=== PATIENT | male | born 1995 | race Caucasian/White ===

== ENCOUNTER 2016-10-08 18:52 | Emergency (ER) | payer SELFPAY ==
[2016-10-08] MEDS ORDERED: diPHENhydraMINE PO* 25 MG PO ONE (19:42)
--- NOTE | 2016-10-08 19:42 | ED ---
Skin Complaint - HPI Summary HPI Summary: 21M presents with rash since Saturday. He saw the area started on his hands and then spread across body. He states the area hunter and itches. He denies any chest pain or SOB. He took one dose of Benadryl and tried calamine lotion which burned. He denies any fever or fatigue. He denies any new products or foods. He states he was outside and is concerned that is poison [place]? - History of Current Complaint Chief Complaint: EDAllergicReaction Time Seen by Provider: 10/08/16 19:32 Stated Complaint: POSS POISON [place] Pain Intensity: 3 PMH/Surg Hx/FS Hx/Imm Hx Endocrine/Hematology History: Denies: Hx Anticoagulant Therapy Respiratory History: Denies: Hx Asthma Infectious Disease History: Denies: Traveled Outside the [place] in Last 30 Days - Family History Known Family History: Negative: Cardiac Disease - Social History Alcohol Use: Occasionally Substance Use Type: Reports: None Smoking Status (MU): Never Smoked Tobacco Review of Systems Negative: Fever Negative: Chest Pain Negative: Shortness Of Breath Positive: Rash All Other Systems Reviewed And Are Negative: Yes Physical Exam Triage Information Reviewed: Yes Vital Signs On Initial Exam: Initial Vitals Temp Pulse Resp BP Pulse Ox 97.8 F 90 18 146/61 100 10/08/16 19:17 10/08/16 19:17 10/08/16 19:17 10/08/16 19:17 10/08/16 19:17 Vital Signs Reviewed: Yes Appearance: Positive: Well-Appearing Skin: Positive: Other - papular lesions across body, no sign of cellulitis surrounding lesions Head/Face: Positive: Normal Head/Face Inspection Eyes: Positive: Normal, Conjunctiva Clear ENT: Positive: Normal ENT inspection, Pharynx normal, TMs normal Respiratory/Lung Sounds: Positive: Clear to Auscultation, Breath Sounds Present Cardiovascular: Positive: Normal, RRR Diagnostics - Vital Signs Vital Signs Temp Pulse Resp BP Pulse Ox 10/08/16 19:17 97.8 F 90 18 146/61 100 - Laboratory Lab Statement: Any lab studies that have been ordered have been reviewed, and results considered in the medical decision making process. Course/Dx - Course Course Of Treatment: 21M presents with body wide rash that is itchy for 4 days. started as area on hands and spread. denies any respiratory involvement. on exam rash looks like an allergic reaction. could possibly be poision [place]. will treat with bendaryl and steriod. told to est care with primary to follow up. patient understands and agrees with plan - Differential Diagnoses - Skin Complaint Differential Diagnoses: Cellulitis, Contact Dermatitis, Poison [place], Urticaria - Diagnoses Provider Diagnoses: Contact dermatitis Discharge - Discharge Plan Condition: Good Disposition: HOME Prescriptions: Methylprednisolone [Medrol Dosepak 4 MG*] 4 mg PO .SEE MARITZA INSTRUCTION #1 packet Patient Education Materials: Contact Dermatitis (ED) Referrals: [facility] [Outside] Additional Instructions: Take Benadryl every 6 hours Can apply cream with hydrocortisone to area for itchy Take ibuprofen every 6 hours for pain Follow directions on dose pack for prednisone Establish care with primary care physician Return to ED if develop shortness of breath, difficulty swallowing or any new or worsening symptoms
[2016-10-08 19:58] VITALS: BP 125/60
== END 2016-10-08 19:59 | disposition home or self-care (01) ==
LOC: ED 18:52
DX: L25.9 Unspecified contact dermatitis, unspecified cause (principal)
CPT/HCPCS: 99282; A9270-GY